=== PATIENT | female | born 2005 | race Hispanic/Latino ===

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

== ENCOUNTER → 2023-04-12 | Emergency (ER) | payer OTHER ==
[~2023-04-12] MED LIST: AMOX/K CLAV 875 MG TAB ONE; CODEINE 30MG/APAP 300MG TAB ONE; IBUPROFEN 400 MG TAB ONE; LIDOCAINE 1% 20 ML MDV ONE; ONDANSETRON 4 MG (ODT) TAB ONE
--- NOTE | 2023-04-12 21:17 | EDPHYS ---
Physician Documentation [facility] Name: Michelle Patino Age: 17 yrs Sex: Female : 2005 Arrival Date: 04/12/2023 Time: 19:55 Bed Treatment Private MD: ED Physician Qamar Gomez HPI: 04/11 20:02 This 17 yrs old Female presents to ER via Unassigned with complaints of Dog sp4 Bite, pt has dog bite to both sides of face. 20:13 17-year-old female presents with bilateral facial lacerations secondary to dog bite. sp4 Just prior to arrival patient was bitten by the [place] Pol[place] in the face. Patient has right lower mcadams laceration about 1-1/2 cm long and left lower cheek laceration about 1-1/2 cm long. Patient states she is up-to-date on her tetanus vaccine. Patient's dog is also vaccinated for rabies. No other injury.. 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 - Social history:: Smoking status: Patient denies any tobacco usage or history of. - Family history:: not pertinent. ROS: 20:13 Constitutional: Negative for fever, chills, and weight loss, positive facial laceration sp4 secondary to dog bite 20:13 All other systems are negative, Exam: 20:13 Constitutional: This is a well developed, well nourished patient who is awake, alert, sp4 and in no acute distress. Head/Face: Normocephalic, there is a right lower chin laceration measuring 1-1/2 cm long there is left lower cheek laceration measuring 1-1/2 cm long, no active bleeding, these are reported secondary to dog bite. There is mild facial swelling and tenderness. Eyes: Pupils equal round and reactive to light, extra-ocular motions intact. Lids and lashes normal. Conjunctiva and sclera are not injected. Cornea within normal limits. Periorbital areas with no swelling, redness, or edema. ENT: Nares patent. No nasal discharge, no septal abnormalities noted. Tympanic membranes are normal and external auditory canals are clear. Oropharynx with no redness, swelling, or masses, exudates, or evidence of obstruction, uvula midline. Mucous membranes moist. Neck: Trachea midline, no thyromegaly or masses palpated, and no cervical lymphadenopathy. Supple, full range of motion without nuchal rigidity, or vertebral point tenderness. Chest/axilla: Normal chest wall appearance and motion. Nontender with no deformity. No lesions are appreciated. Cardiovascular: Regular rate and rhythm with a normal S1 and S2. No gallops, murmurs, or rubs. Normal PMI, no JVD. No pulse deficits. Respiratory: Lungs have equal breath sounds bilaterally, clear to auscultation and percussion. No rales, rhonchi or wheezes noted. No increased work of breathing, no retractions or nasal flaring. Abdomen/GI: Soft, with normal bowel sounds. No distension or tympany. No guarding or rebound. No evidence of tenderness throughout. Back: No spinal tenderness. No costovertebral tenderness. Skin: Warm, dry with normal turgor. Normal color with no rashes, no lesions, and no evidence of cellulitis. MS/ Extremity: Pulses equal, no cyanosis. Neurovascular intact. Full, normal range of motion. Neuro: Awake and alert, GCS 15, oriented to person, place, time, and situation. Cranial nerves II-XII grossly intact. Motor strength 5/5 in all extremities. Sensory grossly intact. Psych: Awake, alert, with orientation to person, place and time. Behavior, mood, and affect are within normal limits Vital Signs: 20:25 BP 145 / 97; Pulse 62; Resp 16; Temp 98.4(O); Pulse Ox 100% on R/A; Weight 68.04 kg; tl4 Height 5 ft. 5 in. ; Pain 8/10; 21:38 BP 112 / 74; Pulse 63; Resp 18; Temp 97.9; Pulse Ox 100% ; Pain 0/10; tl4 20:25 Body Mass Index 24.96 (68.04 kg, 165.1 cm) - Percentile 78.6 % tl4 20:25 Pain Scale: Adult tl4 21:38 Pain Scale: Adult tl4 Laceration: 21:18 Wound Repair of 1.5cm ( 0.6in ) subcutaneous laceration to left cheek. Linear shaped.. sp4 Moderate contamination.. Distal neuro/vascular/tendon intact. Anesthesia: Wound infiltrated with 7 mls of 1% lidocaine. Wound prep: Moderate cleansing by me, Copious irrigation. Skin closed with 4 6-0 Prolene using interrupted sutures and sterile technique. Dressed with Neosporin and left to air . Patient tolerated well. 21:18 Wound Repair of 1.5cm ( 0.6in ) subcutaneous laceration to right jaw - Right lower chin sp4 laceration secondary to dog bite . Irregularly shaped.. Moderate contamination.. Distal neuro/vascular/tendon intact. Anesthesia: Wound infiltrated with 8 mls of 1% lidocaine. Wound prep: Moderate cleansing by me, Copious irrigation. Skin closed with 6 6-0 Prolene using interrupted sutures and sterile technique. Dressed with Neosporin . Patient tolerated well. MDM: 20:13 Patient medically screened. sp4 21:18 Differential diagnosis: superficial laceration, tendon injury, vascular injury. Data sp4 reviewed: vital signs, nurses notes. ED course: Lacerations were fixed . 03 20:13 Order name: Dressing - Wound; Complete Time: 21:00 sp4 03 20:13 Order name: Gloves, Sterile; Complete Time: 21:01 sp4 03/06 20:13 Order name: Setup Suture Tray; Complete Time: 21:01 sp4 Administered Medications: 20:38 Drug: Amoxicillin-Clavulanate PO 875 mg PO once Route: PO; tl4 21:42 Follow up: Response: No adverse reaction ha1 21:42 Follow up: Response: No adverse reaction tl4 20:38 Drug: Ibuprofen PO 800 mg PO once Route: PO; tl4 21:42 Follow up: Response: No adverse reaction; Marked relief of symptoms; Pain is decreased ha1 21:42 Follow up: Response: Pain is decreased tl4 20:38 Drug: Acetaminophen-Codeine PO (300 mg-30 mg) 2 tabs PO once; RASS on ADMIN: Combtv4, tl4 Very Agttd3, Agttd2, Rstlss1, AlertClm0, Drwsy-1, Lt Sdtn-2, Mod Sdtn-3, Dp Sdtn-4, UnArsble-5 Route: PO; 21:41 Follow up: Response: No adverse reaction; Marked relief of symptoms; Pain is decreased ha1 20:38 Drug: Ondansetron PO 4 mg PO once Route: PO; ha1 21:41 Follow up: Response: No adverse reaction ha1 21:00 Drug: Lidocaine Infiltration (1 %) 20 ml 20 ml Infiltration once; to bedside {Note: ha1 administered Dr. Gomez .} Volume: 20 ml; Route: Infiltration; 21:31 Follow up: Response: No adverse reaction tl4 21:41 Follow up: Response: No adverse reaction ha1 21:30 Drug: Zeymmpwm-Sjdzkrxqpp-Ocgcarwnr Topical Ointment 1 application Topical once Route: tl4 Topical; Site: affected area; 21:41 Follow up: Response: No adverse reaction ha1 Disposition Summary: 04/12/23 21:16 Discharge Ordered Problem: new sp4 Symptoms: have improved sp4 Condition: Stable sp4 Diagnosis - Facial Laceration/ Laceration without foreign body of cheek and temporomandibular sp4 area - Laceration left cheeck , Laceration Right chin, Dog bite to the face sp4 Followup: sp4 - With: Private Physician - When: 7 - 10 days - Reason: Recheck today's complaints Discharge Instructions: - Discharge Summary Sheet sp4 - Facial Laceration, [id number]-uk-Doyh sp4 Forms: - Patient Portal Instructions sp4 Prescriptions: - Augmentin 875-125 mg Oral Tablet - take 1 tablet ORAL route every 12 hours for 10 days; 20 tablet; Refills: 0, sp4 Product Selection Permitted - Ibuprofen 600 mg Oral Tablet - take 1 tablet ORAL route every 6 hours As needed take with food; 30 tablet; sp4 Refills: 0, Product Selection Permitted Signatures: Flavia Mackey RN RN ha1 Qamar Gomez MD MD sp4 Ken Moore RN RN tl4
--- NOTE | 2023-04-12 21:17 | ER ---
Nurse's Notes [facility] Name: Michelle Patino Age: 17 yrs Sex: Female : 2005 Arrival Date: 04/12/2023 Time: 19:55 Bed Treatment Private MD: Diagnosis: Facial Laceration/ Laceration without foreign body of cheek and temporomandibular area;Laceration left cheeck , Laceration Right chin, Dog bite to the face Presentation: 04/11 20:25 Chief complaint: Patient states: Pt states she was hugging her dog and he bit her on tl4 the face. Pt has puncture wounds to right and left jaw. Bleeding controlled. Coronavirus screen: At this time, the client does not indicate any symptoms associated with coronavirus-19. Ebola Screen: No symptoms or risks identified at this time. Initial Sepsis Screen: Does the patient meet any 2 criteria? No. Patient's initial sepsis screen is negative. Does the patient have a suspected source of infection? No. Patient's initial sepsis screen is negative. Risk Assessment: Do you want to hurt yourself or someone else? Patient reports no desire to harm self or others. Onset of symptoms was April 12, 2023 at 19:30. 20:25 Method Of Arrival: Ambulatory tl4 20:25 Acuity: THOMAS 4 tl4 Triage Assessment: 20:28 Bite description: bite sustained to face by a dog, animal information: vaccination(s) tl4 is current. General: Appears distressed, Behavior is calm, cooperative. Pain: Complains of pain in face. EENT: No deficits noted. No signs and/or symptoms were reported regarding the EENT system. Neuro: No deficits noted. Cardiovascular: No deficits noted. Respiratory: No deficits noted. GI: No deficits noted. No signs and/or symptoms were reported involving the gastrointestinal system. : No deficits noted. No signs and/or symptoms were reported regarding the genitourinary system. Derm: No deficits noted. No signs and/or symptoms reported regarding the dermatologic system. 20:58 Bite description: animal information: Animal control has been notified, Davi Carr tl4 contacted with patient and dog information. Dispatcher states she is sending an officer to ED. FLOOR COVERER: 21:41 LMP N/A - control method, Not tl4 Historical: - Allergies: 20:27 NKA; tl4 - Home Meds: 20:27 None [Active]; tl4 - PMHx: 20:27 None; tl4 - PSHx: 20:27 None; tl4 - Immunization history:: Adult Immunizations unknown. - Social history:: Smoking status: Patient denies any tobacco usage or history of. - Family history:: not pertinent. Screenin:39 [facility] ED Fall Risk Assessment (Adult) History of falling in the last 3 months, tl4 including since admission No falls in past 3 months (0 pts) Confusion or Disorientation No (0 pts) Intoxicated or Sedated No (0 pts) Impaired Gait No (0 pts) Mobility Assist Device Used No (0 pt) Altered Elimination No (0 pt) Score/Fall Risk Level 0 - 2 = Low Risk Oriented to surroundings, Maintained a safe environment, Educated pt \T\ family on fall prevention, incl call for assistance when getting out of bed, Assessed \T\ reinforced patient's understanding of fall precautions, Provided non-skid footwear, Hourly rounding (assess needs \T\ fall precautionary measures) done, Used ambulatory aids as needed (educated on \T\ assisted with), Used gait belt as appropriate. Abuse screen: Denies threats or abuse. Denies injuries from another. Nutritional screening: No deficits noted. Tuberculosis screening: No symptoms or risk factors identified. Assessment: 21:30 Reassessment: Davi ADDISON at pt bedside to take dog bite report. tl4 21:37 Reassessment: No changes from previously documented assessment. Patient and/or family tl4 updated on plan of care and expected duration. Pain level reassessed. Patient is alert, oriented x 3, equal unlabored respirations, skin warm/dry/pink. Derm: Skin lacerations x 2 to face Skin is pink, warm \T\ dry. Vital Signs: 20:25 BP 145 / 97; Pulse 62; Resp 16; Temp 98.4(O); Pulse Ox 100% on R/A; Weight 68.04 kg; tl4 Height 5 ft. 5 in. ; Pain 8/10; 21:38 BP 112 / 74; Pulse 63; Resp 18; Temp 97.9; Pulse Ox 100% ; Pain 0/10; tl4 20:25 Body Mass Index 24.96 (68.04 kg, 165.1 cm) - Percentile 78.6 % tl4 20:25 Pain Scale: Adult tl4 21:38 Pain Scale: Adult tl4 ED Course: 20:00 Patient arrived in ED. gm2 20:02 Qamar Gomez MD is Attending Physician. sp4 20:27 Triage completed. tl4 20:29 Arm band placed on right wrist. tl4 21:40 Patient has correct armband on for positive identification. Bed in low position. Call tl4 light in reach. Side rails up X 1. Adult w/ patient. Provided Education on: ed process. 21:40 No provider procedures requiring assistance completed. Patient did not have IV access tl4 during this emergency room visit. Administered Medications: 20:38 Drug: Amoxicillin-Clavulanate PO 875 mg PO once Route: PO; tl4 21:42 Follow up: Response: No adverse reaction ha1 21:42 Follow up: Response: No adverse reaction tl4 20:38 Drug: Ibuprofen PO 800 mg PO once Route: PO; tl4 21:42 Follow up: Response: No adverse reaction; Marked relief of symptoms; Pain is decreased ha1 21:42 Follow up: Response: Pain is decreased tl4 20:38 Drug: Acetaminophen-Codeine PO (300 mg-30 mg) 2 tabs PO once; RASS on ADMIN: Combtv4, tl4 Very Agttd3, Agttd2, Rstlss1, AlertClm0, Drwsy-1, Lt Sdtn-2, Mod Sdtn-3, Dp Sdtn-4, UnArsble-5 Route: PO; 21:41 Follow up: Response: No adverse reaction; Marked relief of symptoms; Pain is decreased ha1 20:38 Drug: Ondansetron PO 4 mg PO once Route: PO; ha1 21:41 Follow up: Response: No adverse reaction ha1 21:00 Drug: Lidocaine Infiltration (1 %) 20 ml 20 ml Infiltration once; to bedside {Note: ha1 administered Dr. Gomez .} Volume: 20 ml; Route: Infiltration; 21:31 Follow up: Response: No adverse reaction tl4 21:41 Follow up: Response: No adverse reaction ha1 21:30 Drug: Gkimbuej-Vpknprhgrf-Qxdhhjpfl Topical Ointment 1 application Topical once Route: tl4 Topical; Site: affected area; 21:41 Follow up: Response: No adverse reaction ha1 Medication: 21:38 VIS not applicable for this client. tl4 Outcome: 21:16 Discharge ordered by . sp4 21:40 Discharged to home ambulatory, with family, tl4 21:40 Condition: stable 21:40 Discharge instructions given to patient, family, Instructed on discharge instructions, follow up and referral plans. medication usage, Demonstrated understanding of instructions, follow-up care, medications, Prescriptions given X 2, 21:41 Patient left the ED. tl4 Signatures: Flavia Mackey, RN RN ha1 Qamar Gomez MD MD sp4 Isis Fernandez gm2 Ken Moore RN RN tl4
[2023-04-12 21:50] VITALS: BP 112/74; TEMP 97.9; O2SAT 100
== END ==
LOC: ER 19:55
PROC: 0HQ1XZZ Repair Face Skin, External Approach (ICD-10-PCS; principal; 2023-04-12)
DX: S01.412A Laceration without foreign body of left cheek and temporomandibular area, initial encounter (principal); S01.81XA Laceration without foreign body of other part of head, initial encounter; W54.0XXA Bitten by dog, initial encounter
CPT/HCPCS: 12013; Q0162; J2001; 99283